=== PATIENT | male | born 1955 | race Caucasian/White ===

== ENCOUNTER 2021-09-10 12:21 | Emergency (ER) | payer OTHER ==
[~2021-09-10] VITALS: Ht 167.6 cm; Wt 111.1 kg
[~2021-09-10 12:21] MED LIST: ALBU90OI INH; CEFP200 PO; DELTASONE20 MG PO; TRIHYD253A PO
== END 2021-09-10 14:13 | disposition home or self-care (01) ==
LOC: ER 12:21
DX: T18.9XXA Foreign body of alimentary tract, part unspecified, initial encounter (principal); I10 Essential (primary) hypertension; Z79.899 Other long term (current) drug therapy
CPT/HCPCS: 96374; 99283-25; A9270; J1610